=== PATIENT | male | born 1965 | race Caucasian/White ===

== ENCOUNTER 2017-08-14 11:11 | Emergency (ER) | payer OTHER ==
[2017-08-14] MEDS: ONDANSETRON (ODT) 4 MG TAB ODT (13:04)
[2017-08-14] MEDS: IBUPROFEN 600 MG TAB PO (13:04)
[2017-08-14] MEDS: SOD CHLORIDE 0.9% 2,110 ML IV (14:41)
[2017-08-14 15:07] LABS: ADD MAN DIFF? NO
[2017-08-14] MEDS: KETOROLAC 30 MG INJ IV (15:20)
[2017-08-14] MEDS: ONDANSETRON 4 MG INJ IV (15:20)
[2017-08-14 15:29] LABS: ADD UMIC YES; UR ASCORBIC ACID NEGATIVE (NEGATIVE); UR BILIRUBIN (Dip) NEGATIVE (NEGATIVE); UR BLOOD (Dip) NEGATIVE (NEGATIVE); UR CLARITY SLIGHTLY CLOUDY (CLEAR); UR COLOR AMBER (YELLOW); UR GLUCOSE (Dip) NEGATIVE (NEGATIVE); UR KETONES (Dip) NEGATIVE (NEGATIVE); UR LEUKOCYTE ESTERASE (Dip) NEGATIVE Leu/ul (NEGATIVE); UR MUCUS MANY /HPF (NONE SEEN); UR NITRITE (Dip) NEGATIVE (NEGATIVE); UR RBC 0 /HPF (0-5); UR SPECIFIC GRAVITY (Dip) 1.026 (1.003-1.030); UR TOTAL PROTEIN (Dip) 1+ mg/dl (NEGATIVE); UR UROBILINOGEN (Dip) 1+ mg/dL (NEGATIVE); UR WBC 0 /HPF (0-5)
[2017-08-14 15:36] LABS: INR 1.09; PROTIME 14.3 Sec (11.9-14.9); PT RATIO 1.1
[2017-08-14 15:38] LABS: PARTIAL THROMBOPLASTIN TIME 32.2 Sec (25.0-35.0)
[2017-08-14 15:42] LABS: LACTIC ACID 1.3 mmol/L (0.5-2.0)
[2017-08-14 15:48] LABS: ALANINE AMINOTRANSFERASE 139 IU/L (13-69); ALBUMIN 3.6 g/dl (3.3-4.9); ALBUMIN/GLOBULIN RATIO 0.92; ALKALINE PHOSPHATASE 642 IU/L (42-121); ANION GAP 17 (8-16); ASPARTATE AMINO TRANSFERASE 159 IU/L (15-46); BLOOD UREA NITROGEN 18 mg/dl (7-20); CALCIUM 8.2 mg/dl (8.4-10.2); CARBON DIOXIDE 20 mmol/L (21-31); CHLORIDE 103 mmol/L (97-110); CREATININE 1.21 mg/dl (0.61-1.24); GLUCOSE 89 mg/dl (70-220); LIPASE 107 U/L (23-300); POTASSIUM 3.5 mmol/L (3.5-5.1); SODIUM 136 mmol/L (135-144); TOTAL PROTEIN 7.5 g/dl (6.1-8.1)
[2017-08-14] MEDS: OSELTAMIVIR 75 MG CAP PO (15:49)
[2017-08-14 15:50] LABS: ETHANOL < 10.0 mg/dl
[2017-08-14 15:58] LABS: TROPONIN-I < 0.012 ng/ml (0.00-0.12)
[2017-08-14 15:59] LABS: AMMONIA 25 umol/l (9-30)
[2017-08-14 16:06] LABS: ABNORMAL IP MESSAGE 1; BASOPHIL # 0.1 10^3/ul (0.0-0.1); BASOPHILS % 1.3 % (0.0-2.0); EOSINOPHILS % 0.3 % (0.0-7.0); HEMATOCRIT 27.5 % (42.0-52.0); HEMOGLOBIN 8.1 g/dl (14.0-18.0); LYMPHOCYTES # 0.9 10^3/ul (0.8-2.9); LYMPHOCYTES % 22.5 % (15.0-51.0); MEAN CORPUSCULAR HGB CONC 29.5 g/dl (32.0-37.0); MEAN CORPUSCULAR VOLUME 74.5 fl (82.0-101.0); MEAN PLATELET VOLUME 9.3 fl (7.4-10.4); MONOCYTE # 0.6 10^3/ul (0.3-0.9); MONOCYTES % 14.9 % (0.0-11.0); NEUTROPHIL # 2.4 10^3/ul (1.6-7.5); NEUTROPHILS % 60.7 % (39.0-77.0); PLATELET COUNT 163 10^3/UL (140-415); POSITIVE DIFF @See below; RED BLOOD COUNT 3.69 10^6/ul (4.70-6.10); RED CELL DISTRIBUTION WIDTH 20.6 % (11.5-14.5)
[2017-08-14] MEDS: SOD CHLORIDE 0.9% 100 ML (18:02)
[2017-08-14] MEDS: IODIXANOL LOCM 100 ML BTL (18:02)
== END 2017-08-14 19:25 | disposition left against medical advice (07) ==
LOC: FTE 11:11
DX: J11.1 Influenza due to unidentified influenza virus with other respiratory manifestations (principal); D50.9 Iron deficiency anemia, unspecified; R74.0 Nonspecific elevation of levels of transaminase and lactic acid dehydrogenase [LDH]; K80.01 Calculus of gallbladder with acute cholecystitis with obstruction; R10.9 Unspecified abdominal pain
CPT/HCPCS: 36415; 71010; 74177; 80053; 80306; 81001; 82140; 83605; 83690; 84484; 85025; 85610; 85730; 87040; 87086; 87400; 93005; 96374; 96375; 99285-25